=== PATIENT | female | born 1965 | race Caucasian/White ===

== ENCOUNTER 2016-04-24 13:17 | Inpatient (IN) | payer MEDICARE, OTHER ==
[~2016-04-24] VITALS: Ht 160 cm; Wt 70.3 kg
[2016-04-24] MEDS ORDERED: METOPROLOL TART25 MG PO (18:04)
[2016-04-24] MEDS ORDERED: NEURONTIN 300300 MG PO (18:05)
[2016-04-24] MEDS ORDERED: DANTRIUM PO (18:05)
[2016-04-24] MEDS ORDERED: TOUJEO SQ (18:10)
[2016-04-24] MEDS ORDERED: NORVASC 5 MG TAB5 MG PO (18:11)
[2016-04-24] MEDS ORDERED: NOVOLOG FL100 UNIT/1 SQ (18:11)
[2016-04-24] MEDS ORDERED: ESCITALOPRAM OX20 MG PO (18:13)
[2016-04-24] MEDS ORDERED: COZAAR25 MG PO (18:13)
[2016-04-24] MEDS ORDERED: NEXIUM20 MG PO (18:14)
[2016-04-24] MEDS ORDERED: TIZANIDINE HCL2 MG PO (18:15)
[2016-04-24] MEDS ORDERED: IBUPROFEN400 MG PO (18:16)
[2016-04-24] MEDS ORDERED: ZYRTEC10 M3 PO (18:17)
[2016-04-24] MEDS ORDERED: ASPIRIN EC325 MG PO (18:20)
[2016-04-24 20:51] LABS: HEMOGLOBIN 15.7 gm/dl (12.3-15.3)
[2016-04-24 21:12] LABS: BUN/CREATININE RATIO 43 (0-10)
[2016-04-25 07:06] LABS: HEMOGLOBIN 14.9 gm/dl (12.3-15.3); RED BLOOD COUNT 4.77 M/UL (4.00-5.10); WHITE BLOOD COUNT 12.3 K/UL (4.5-11.0)
[2016-04-25 07:27] LABS: BUN/CREATININE RATIO 60 (0-10)
[2016-04-26 05:34] LABS: BUN/CREATININE RATIO 33 (0-10)
[2016-04-26 06:09] LABS: RED BLOOD COUNT 3.59 M/UL (4.00-5.10); WHITE BLOOD COUNT 17.5 K/UL (4.5-11.0)
[2016-04-26 06:10] LABS: HEMOGLOBIN 11.2 gm/dl (12.3-15.3)
[2016-04-27 08:00] LABS: HEMOGLOBIN 9.5 gm/dl (12.3-15.3)
[2016-04-27 08:01] LABS: BUN/CREATININE RATIO 13 (0-10)
[2016-04-27 08:16] LABS: RED BLOOD COUNT 3.07 M/UL (4.00-5.10); WHITE BLOOD COUNT 12.6 K/UL (4.5-11.0)
[2016-04-28 04:48] LABS: HEMOGLOBIN 9.4 gm/dl (12.3-15.3); RED BLOOD COUNT 3.04 M/UL (4.00-5.10)
[2016-04-28 05:03] LABS: BUN/CREATININE RATIO 23 (0-10)
[2016-04-28] MEDS ORDERED: LOVENOX SY40 MG/0.4 SQ (17:08)
[2016-04-28] MEDS ORDERED: PERCOCET 5-3251 EACH PO (17:11)
== END 2016-04-28 19:14 | disposition home health service (06) | DRG 481 ==
LOC: M/S 17:23 → ZEROF 17:23 → M/S 17:27
PROVIDERS: Orthopaedic Surgery; ADMIT Emergency Medicine
PROC: 0QS704Z Reposition Left Upper Femur with Internal Fixation Device, Open Approach (ICD-10-PCS; principal; 2016-04-25 14:45)
DX: S72.142A Displaced intertrochanteric fracture of left femur, initial encounter for closed fracture (principal); I69.354 Hemiplegia and hemiparesis following cerebral infarction affecting left non-dominant side; D62 Acute posthemorrhagic anemia; J98.11 Atelectasis; I10 Essential (primary) hypertension; E11.65 Type 2 diabetes mellitus with hyperglycemia; G89.29 Other chronic pain; M54.9 Dorsalgia, unspecified; F17.210 Nicotine dependence, cigarettes, uncomplicated; F32.9 Major depressive disorder, single episode, unspecified; K21.9 Gastro-esophageal reflux disease without esophagitis; E66.9 Obesity, unspecified; F41.9 Anxiety disorder, unspecified; E87.6 Hypokalemia; Z68.27 Body mass index [BMI] 27.0-27.9, adult; Z91.81 History of falling; G62.9 Polyneuropathy, unspecified; Z88.6 Allergy status to analgesic agent; Z88.8 Allergy status to other drugs, medicaments and biological substances; Z91.048 Other nonmedicinal substance allergy status; Z79.4 Long term (current) use of insulin; Z79.01 Long term (current) use of anticoagulants; Z79.82 Long term (current) use of aspirin; Z79.899 Other long term (current) drug therapy; W18.39XA Other fall on same level, initial encounter; Y93.01 Activity, walking, marching and hiking; Y92.003 Bedroom of unspecified non-institutional (private) residence as the place of occurrence of the external cause; Z28.21 Immunization not carried out because of patient refusal; Z82.49 Family history of ischemic heart disease and other diseases of the circulatory system; Z83.3 Family history of diabetes mellitus; Z84.89 Family history of other specified conditions; T38.0X5A Adverse effect of glucocorticoids and synthetic analogues, initial encounter; D72.829 Elevated white blood cell count, unspecified; Y92.239 Unspecified place in hospital as the place of occurrence of the external cause
CPT/HCPCS: ECHO; 36415; 71010; 72170; 73502; 76000; 80048; 80061; 81001; 82962; 83036; 83735; 85025; 85027; 87086; 93005; 93306; 94640; 97110; 97530; 97535; C1713; C1769; J0690; J1200; J1650; J2270; J2370; J2405; J2795; J3010; J7030; J7050; J7120

== ENCOUNTER 2020-11-16 10:45 | Emergency (ER) | payer MEDICARE, OTHER ==
[~2020-11-16 10:45] MED LIST: ASPIRIN EC325 MG PO; COZAAR25 MG PO; DANTRIUM PO; ESCITALOPRAM OX20 MG PO; IBUPROFEN400 MG PO; LOVENOX SY40 MG/0.4 SQ; METOPROLOL TART25 MG PO; NEURONTIN 300300 MG PO; NEXIUM20 MG PO; NORVASC 5 MG TAB5 MG PO; NOVOLOG FL100 UNIT/1 SQ; PERCOCET 5-3251 EACH PO; TIZANIDINE HCL2 MG PO; TOUJEO SQ; ZYRTEC10 M3 PO
[2020-11-16 15:18] LABS: HEMOGLOBIN 16.1 gm/dl (12.3-15.3); RED BLOOD COUNT 4.98 M/UL (4.00-5.10); WHITE BLOOD COUNT 9.4 K/UL (4.5-11.0)
[2020-11-16 15:46] LABS: BUN/CREATININE RATIO 33 (0-10)
== END 2020-11-16 12:30 | disposition left against medical advice (07) ==
LOC: ER1 10:45
PROVIDERS: Preventive Medicine Occupational Medicine
DX: R51.9 Headache, unspecified (principal); E11.9 Type 2 diabetes mellitus without complications; Z20.822 Contact with and (suspected) exposure to COVID-19; Z86.73 Personal history of transient ischemic attack (TIA), and cerebral infarction without residual deficits; F17.210 Nicotine dependence, cigarettes, uncomplicated
CPT/HCPCS: 80053; 83690; 85025; 85652; 86140; 93005; 99284; U0002